=== PATIENT | female | born 1955 | race Caucasian/White ===

== ENCOUNTER 2016-09-29 12:24 | Inpatient (IN) ==
[2016-09-29 13:18] LABS: ALLEN TEST YES; BE 0.5 mmoll (-3.0-3.0); BLOOD TYPE ARTERIAL; DRAW SITE R RADIAL; METHB 1.3 % (0.0-1.5); MODALITY ROOM AIR; O2(CT) 8.7 mL/dL (15.0-23.0); PCO2(98.6) 41 mmHg (35-45); PO2(98.6) 69 mmHg (60-100); SAMPLE BLOOD; SAO2 97.5 % (95.0-100.0); THB 6.5 g/dL (11.5-17.4)
--- NOTE | 2016-09-29 14:22 | Diag Imaging Result Document ---
PROCEDURE NAME: CHEST-1 VIEW - 09/29/2016 CHEST SINGLE VIEW: COMPARISON: Compared to 07/15/2016. FINDINGS: The lungs are well expanded. Heart is not enlarged. Mild increased interstitial markings believed to be pulmonary edema. No consolidation. No pleural effusions identified. IMPRESSION: Mild pulmonary edema. Followup PA and lateral recommended.
[2016-09-29 14:34] LABS: MANUAL DIFF NEEDED? NO
[2016-09-29 14:42] LABS: BASO% 0.7 % (0.0-0.8); EOS# 0.18 X1000 (0.0-0.7); EOS% 2.6 % (0.0-10.0); HEMATOCRIT 22.9 % (37.0-47.0); HEMOGLOBIN 6.8 g/dL (12.0-16.0); LYMPH# 1.91 X1000 (1.2-3.4); LYMPH% 27.1 % (20.5-51.1); MCH 26.3 PG (27-31); MCHC 29.7 g/dL (33-37); MCV 88.4 FL (81-99); MONO# 0.78 X1000 (0.11-0.59); MONO% 11.1 % (1.7-9.3); MPV 10.8 FL (7.4-10.4); NEUT% 58.5 % (42.2-75.2); PLT 467 X1000 (130-400); RBC 2.59 XMIL (4.2-5.4)
[2016-09-29 15:09] LABS: INR 0.98; PROTIME 10.3 Seconds (9.2-11.7)
[2016-09-29 15:13] LABS: AGAP 15; ALBUMIN 3.6 g/dL (3.5-5.0); ALKALINE PHOSPHATASE 85 U/L (32-104); BUN 69 mg/dL (8-22); CALCIUM 8.5 mg/dL (8.8-10.2); CHLORIDE 102 mmol/L (98-107); CK PROFILE 93 U/L (24-173); COSMO 297; GOT 18 U/L (10-30); GPT 28 U/L (10-36); LIPASE 18 U/L (13-60); POTASSIUM 4.8 mmol/L (3.5-5.1); SODIUM 140 mmol/L (136-145); TCO2 23 mmol/L (25-35); TOTAL BILIRUBIN < 0.10 mg/dL (0.20-1.00); TOTAL PROTEIN 6.4 g/dL (6.3-8.3)
--- NOTE | 2016-09-29 16:21 | PROVIDER DOCUMENTATION ---
This chart was entered by Lincoln Thurston Scribe, acting as scribe for Jaquelin Obando MD. HPI-Neurological Disorder - General Stated Complaint: AMS Time Seen by Provider: 09/29/16 12:29 Source: patient Unable to obtain history due to:: altered Allergies/Adverse Reactions: Patient Allergies Allergy/AdvReac Type Severity Reaction Status Date / Time codeine [Codeine] Allergy Unknown RASH Verified 09/29/16 13:32 propranolol HCl * Allergy Unknown Unknown Verified 09/29/16 13:32 [From Inderal LA] sumatriptan [From Imitrex] Allergy Unknown Unknown Verified 09/29/16 13:32 sumatriptan succinate * Allergy Unknown Unknown Verified 09/29/16 13:32 [From Imitrex] trazodone HCl * Allergy Unknown Unknown Verified 09/29/16 13:32 [From Desyrel] duloxetine HCl * Allergy ANAPHYLAXIS Verified 09/29/16 13:32 [From Cymbalta] Penicillins Allergy RASH Verified 09/29/16 13:32 pregabalin [From Lyrica] Allergy ANAPHYLAXIS Verified 09/29/16 13:32 trazodone Allergy Unknown Verified 09/29/16 13:32 Home Medications: Home Medication List Medication Instructions Recorded Confirmed Last Taken Type ATORVAstatin [Lipitor] 40 mg PO QHS 12/06/14 09/29/16 09/28/16 21:00 History Levothyroxine [Synthroid] 50 mcg PO DAILY 12/06/14 09/29/16 09/28/16 21:00 History Esomeprazole [Nexium] 40 mg PO DAILY 09/07/15 09/29/16 09/28/16 21:00 History Insulin Aspart [Novolog Flexpen] 18 each SUBQ TID CC 09/07/15 09/29/16 09/29/16 12:00 History Insulin Detemir [Levemir] 10 units SUBQ HS 09/07/15 09/29/16 09/28/16 21:00 History Fenofibrate 160 mg PO DAILY 05/30/16 09/29/16 09/29/16 09:00 History Losartan [Cozaar] 25 mg PO DAILY 05/30/16 09/29/16 09/29/16 09:00 History Montelukast [Singulair] 10 mg PO QHS 05/30/16 09/29/16 09/28/16 21:00 History Aspirin EC 81 mg PO DAILY #60 tablet 06/08/16 09/29/16 09/29/16 09:00 Rx Insulin Detemir [Levemir] 40 unit SQ DAILY 07/12/16 09/29/16 09/29/16 09:00 History Carvedilol [Coreg] 25 mg PO BID #60 tablet 07/19/16 09/29/16 09/29/16 09:00 Rx Divalproex E.r. [Depakote ER] 250 mg PO DAILY 09/21/16 09/29/16 09/29/16 09:00 History Furosemide [Lasix] 40 mg PO DAILY 09/21/16 09/29/16 09/29/16 09:00 History Acetaminophen [Tylenol] 650 mg PO Q4H PRN 09/29/16 09/29/16 09/27/16 14:17 History Gabapentin [Gabapentin] 800 mg PO 4XDAY 09/29/16 09/29/16 09/29/16 09:00 History - History of Present Illness-Neuro Nature of Presenting Problem: patient is a 61 y/o F that presents to the ER that presents to the with AMS from [facility]. Unknown when AMS began, patient has history of same. 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 EMS report that this AMS is out of her normal. She had a fall last week which she had sutures placed. Severity: reports: moderate Onset/Duration: reports: unsure Timing: reports: still present, constant Context: reports: other (AMS) Character of Altered Mental Status: reports: confused, decreased responsiveness New weakness or altered sensation location:: reports: none Associated Symptoms: reports: confusion, other (AMS). denies: weakness Similar Symptoms Previously?: Yes Recently seen or treated by another doctor?: Yes (8 days ago for fall) Review of Systems - Adult - REVIEW OF SYSTEMS - ADULT ROS:: unobtainable per condition Constitutional: denies: fever, weight loss Eyes: reports: see HPI Ears, Nose, Mouth & Throat: reports: see HPI Cardiovascular: reports: see HPI Respiratory: denies: cough, shortness of breath Gastrointestinal: denies: diarrhea, vomiting Genitourinary: reports: see HPI Musculoskeletal: reports: see HPI Integumentary: reports: see HPI Neurological: reports: see HPI Psychiatric: reports: see HPI Endocrine: reports: see HPI Hematologic/Lymphatic: reports: see HPI Allergic/Immunologic: reports: see HPI All Other Systems: Reviewed and Negative Past History - Adult - PAST MEDICAL HISTORY-ADULT Review of Records: reports: Old Records Reviewed, Nursing Assessment Review, Medications Reviewed Cardiovascular: reports: HTN, hyperlipidemia Respiratory: reports: COPD Gastrointestinal: reports: GERD Obstetrical/Gynecological: reports: uterine/ovarian cancer (ovarian cancer) Musculoskeletal: reports: arthritis, chronic pain, fibromyalgia, other ( bilateral hip replacements) Neurological: reports: CVA, headaches/migraines, TIA, other (neuropathy) Psychiatric: reports: anxiety, depression Endocrine/Immune: reports: Diabetes, thyroid disorder (hypo) Other Conditions: reports: other (fibromyalgia) - PRIOR SURGERIES/PROCEDURES Surgical/Procedure History: reports: hysterectomy, joint replacement (bilateral hips), other (breast implants) - IMMUNIZATION STATUS Childhood Immunizations: NUTD Flu Vaccine: NUTD - FAMILY HISTORY Family History: reviewed, not pertinent - SOCIAL HISTORY Smoking: cigar, less than 1 pack/day Living Situation: care facility ([facility]) Physical Exam- Neurological - Physical Exam-Neuro Exam Limited by: pt condition Initial Vital Signs Reviewed: Yes General Appearance: mild distress, lethargic, slow to respond Eye Exam: bilateral eye: PERRL HENMT: moist mucous membranes, normal ENT inspection Neck: full range of motion, normal inspection Respiratory: lungs clear, normal breath sounds, no respiratory distress, no accessory muscle use Cardiovascular: regular rate, rhythm, no edema, no murmur Abdominal Exam: normal bowel sounds, soft, no organomegaly, no pulsatile mass, tenderness (right sided) Extremity: no calf tenderness, normal capillary refill, pelvis stable, pedal edema (2 plus pitting) polisher numeral Exam: normal hearing, normal speech, PERRL Integumentary: normal turgor, warm/dry, ecchymosis (periumbilical), other ( sutures noted to left cheek) Psych/Mental Status: other (lethargic, slow to respond). negative: anxious, tearful Progress - PLAN OF CARE/RESULTS Progress/Plan/Lab Results: Vital Signs - 8 hr 09/29/16 13:00 09/29/16 14:30 09/29/16 15:28 Pulse Rate 59 L 59 L 63 Respiratory Rate 19 15 23 Blood Pressure 110/67 102/44 110/54 O2 Sat by Pulse Oximetry 95 Laboratory Results - last 24 hr 09/29/16 09/29/16 09/29/16 12:20 12:20 12:20 WBC 7.05 RBC 2.59 L Hgb 6.8 L Hct 22.9 L MCV 88.4 MCH 26.3 L MCHC 29.7 L RDW Std Deviation 15.4 H Plt Count 467 H MPV 10.8 H Immature Gran % (Auto) 0.0 Neut % (Auto) 58.5 Lymph % (Auto) 27.1 [place] % (Auto) 11.1 H Eos % (Auto) 2.6 Baso % (Auto) 0.7 Immature Gran # (Auto) 0.00 Neut # (Auto) 4.13 Lymph # (Auto) 1.91 [place] # (Auto) 0.78 H Eos # (Auto) 0.18 Baso # (Auto) 0.05 PT INR PTT (Actin FS) Specimen Type Sample Site pH pCO2 pO2 HCO3 Base Excess Oxyhemoglobin ABG O2 Sat (Calculated) ABG O2 Saturation ABG Carboxyhemoglobin ABG Methemoglobin Norberto Test A-a O2 Difference Total Hemoglobin Lactate Blood Gas Modality FiO2 % Sodium 140 Potassium 4.8 Chloride 102 Carbon Dioxide 23 L Anion Gap 15 BUN 69 H Creatinine 1.9 H Estimated GFR/1.73 m2 27 BUN/Creatinine Ratio 36 Glucose 57 L Calculated Osmolality 297 Calcium 8.5 L Total Bilirubin < 0.10 L AST 18 ALT 28 Alkaline Phosphatase 85 Creatine Kinase 93 Troponin T Total Protein 6.4 Albumin 3.6 Globulin 2.8 Albumin/Globulin Ratio 1.3 Lipase 18 Plasma/Serum Ethyl Alc 09/29/16 09/29/16 09/29/16 12:20 12:20 13:10 WBC RBC Hgb Hct MCV MCH MCHC RDW Std Deviation Plt Count MPV Immature Gran % (Auto) Neut % (Auto) Lymph % (Auto) [place] % (Auto) Eos % (Auto) Baso % (Auto) Immature Gran # (Auto) Neut # (Auto) Lymph # (Auto) Churchill # (Auto) Eos # (Auto) Baso # (Auto) PT 10.3 INR 0.98 PTT (Actin FS) 21.0 L Specimen Type ARTERIAL Sample Site R RADIAL pH 7.40 pCO2 41 pO2 69 HCO3 25.3 Base Excess 0.5 Oxyhemoglobin 94.4 L ABG O2 Sat (Calculated) 8.7 L ABG O2 Saturation 97.5 ABG Carboxyhemoglobin 2.00 ABG Methemoglobin 1.3 Norberto Test YES A-a O2 Difference 29.0 Total Hemoglobin 6.5 L Lactate 0.80 Blood Gas Modality ROOM AIR FiO2 % 21.0 Sodium Potassium Chloride Carbon Dioxide Anion Gap BUN Creatinine Estimated GFR/1.73 m2 BUN/Creatinine Ratio Glucose Calculated Osmolality Calcium Total Bilirubin AST ALT Alkaline Phosphatase Creatine Kinase Troponin T < 0.010 Total Protein Albumin Globulin Albumin/Globulin Ratio Lipase Plasma/Serum Ethyl Alc Orders Category Date Time Status Cardiac Monitoring DIRECTED Care 09/29/16 12:55 Active Finger Stick Blood Sugar (ED) DIRECTED Care 09/29/16 12:55 Active Saline Loc NOW Care 09/29/16 12:55 Active CHEST-1 VIEW [RAD] Stat Exams 09/29/16 12:55 Completed HEAD W/O CONTRAST [CT] Stat Exams 09/29/16 12:56 Taken ABG [RESP] Routine Lab 09/29/16 13:10 Completed ALCOHOL BLOOD Stat Lab 09/29/16 12:20 Completed CBC WITH ELECTRONIC DIFF [HEME] Stat Lab 09/29/16 12:20 Completed CK PROFILE [SP CHEM] Stat Lab 09/29/16 12:20 Completed COMPREHENSIVE METABOLIC PANEL [CHEM] Stat Lab 09/29/16 12:20 Completed LIPASE [CHEM] Stat Lab 09/29/16 12:20 Completed PROTIME WITH INR [COAG] Stat Lab 09/29/16 12:20 Completed PTT [COAG] Stat Lab 09/29/16 12:20 Completed TROPONIN T Stat Lab 09/29/16 12:20 Completed TYPE & SCREEN [BBK] Stat Lab 09/29/16 16:10 Ordered UA NIMS W/REFLEX CULT [URINALYSIS] Stat Lab 09/29/16 12:29 Uncollected UDS [URINE DRUG SCREEN] Stat Lab 09/29/16 12:29 Uncollected Pulse Oximetry Stat Oth 09/29/16 12:55 Active EKG [EKG] Stat Ther 09/29/16 12:55 Ordered Hemocult negative Result Diagrams: 09/29/16 12:20 09/29/16 12:20 - EKG 1 Time of EKG reading by physician:: 13:51 EKG Read and Signed by:: Jaquelin Obando EKG Interpretation (*Must complete 3 of following elements*): Abnormal Rate: 57 Rhythm: Sinus Bradycardia [place]: normal QRS: normal [place] Interval: normal ST Wave: normal - XRAY 1 XRAY Study: Chest Impression: Abnormal XRAY Interpretation: mild pulmonary edema - CT/MRI 1 CT Study: Head Impression: Abnormal CT Results: no blood, multiple old infarcts - CONSULTS/PCP/HOSPITALIST Notification #1 *Consult/PCP/Hospitalist*: Time Discussed: 16:16 Consult Disposition: Will see in ED, Admit Departure - Departure Time of Disposition Decision: 16:18 DIAGNOSIS: Renal failure Anemia Qualifiers: Anemia type: unspecified type Qualified Code(s): D64.9 - Anemia, unspecified Altered mental status Qualifiers: Altered mental status type: unspecified Qualified Code(s): R41.82 - Altered mental status, unspecified Disposition: ADMITTED INPATIENT 09 Certified Medical Emergency: Emergent Condition: Stable Referrals and Follow-Ups: Ankit Lee MD [Primary Care Provider] - This chart was documented by the indicated scribe, (Lincoln Thurston Scribe) and accurately reflects the services I performed and decisions made by , Jaquelin Obando MD, as attested by the provider's signature.
[2016-09-29] MEDS ORDERED: D50W SYRINGE IV ONE (16:27)
[2016-09-29] MEDS ORDERED: LASIX IV ONE (16:36)
[2016-09-29 16:48] LABS: BILIRUBIN URINE NEGATIVE (NEGATIVE); BLOOD URINE NEGATIVE (NEGATIVE); COLOR YELLOW; GLUCOSE URINE NEGATIVE (NEGATIVE); LEUKOCYTES URINE NEGATIVE (NEGATIVE); NITRITE URINE NEGATIVE (NEGATIVE); PH URINE 5.5; PROTEIN URINE 30 mg/dL (NEGATIVE); SP GRAVITY URINE 1.017; TURBIDITY URINE CLEAR (CLEAR); URINE CULTURE NEEDED? NO; URINE MICRO REVIEW NEEDED? NO; URINE SOURCE CATH; UROBILINOGEN URINE NORMAL (NORMAL)
[2016-09-29] MEDS ORDERED: SODIUM CHLORIDE 0.9% INJ PRN (16:50)
[2016-09-29 16:51] LABS: UR EPITHELIAL CELLS <10 /HPF (<10); URINE BACTERIA NEGATIVE /HPF; URINE RBC <10 /HPF (<10); URINE WBC <10 /HPF (<10)
[2016-09-29 17:04] LABS: UR AMPHETAMINES QUAL NONE DETECTED (NONE DETECT); UR BARBITUATES QUAL NONE DETECTED (NONE DETECT); UR BENZODIAZEPIN QUAL NONE DETECTED (NONE DETECT); UR CANNABINOIDS QUAL NONE DETECTED (NONE DETECT); UR COCAINE QUAL NONE DETECTED (NONE DETECT); UR METHADONE QUAL NONE DETECTED (NONE DETECT); UR OPIATES QUAL NONE DETECTED (NONE DETECT); UR OXYCODONE QUAL NONE DETECTED (NONE DETECT); UR PCP QUAL NONE DETECTED (NONE DETECT)
[2016-09-29 17:10] LABS: RETIC% 3.04 % (0.8-2.1); RETIC-HE 19.2 PG (28.2-36.6)
[2016-09-29 17:35] LABS: IRON SATURATION 3 %; TIBC 503 ug/dL; TOTAL IRON 14 ug/dL (49-151); UNBOUND IRON 489 ug/dL (112-346)
[2016-09-29] MEDS: PROTONIX IV SCH (17:41)
[2016-09-29] MEDS: SODIUM CHLORIDE 0.9% INJ SCH (17:42)
[2016-09-29 17:49] LABS: UR CREAT RANDOM 83.7 mg/dL (11-20); UR PROT RANDOM 45.3 mg/dL
[2016-09-29 18:08] LABS: FREE T4 1.04 ng/dL (0.93-1.70)
[2016-09-29] MEDS ORDERED: NS 500 ML ONE (18:14)
[2016-09-29] MEDS ORDERED: DUONEB (A & A) ONE (19:06)
[2016-09-29] MEDS ORDERED: MUCOMYST 20% ONE (19:06)
[2016-09-29] MEDS: MUCOMYST 20% INH SCH (19:30)
[2016-09-29] MEDS: DUONEB (A & A) INH SCH ×2 (19:30→23:22)
[2016-09-29] MEDS: 1/2 NS 1,000 ML IV SCH (21:12)
[2016-09-29] MEDS: LEVAQUIN 500 MG in NS 100 ML IV SCH (21:12)
[2016-09-29] MEDS: D50W SYRINGE IV PRN (23:09)
[2016-09-29] MEDS: ATIVAN IV PRN (23:15)
[2016-09-30] MEDS: HALDOL IM PRN ×7 (01:00→22:17)
[2016-09-30] MEDS: DUONEB (A & A) INH SCH ×6 (03:23→22:41)
[2016-09-30 05:13] LABS: HEMATOCRIT 25.2 % (37.0-47.0); HEMOGLOBIN 7.8 g/dL (12.0-16.0); MCV 87.2 FL (81-99); MPV 10.6 FL (7.4-10.4); RBC 2.89 XMIL (4.2-5.4)
[2016-09-30] MEDS: PROTONIX IV SCH ×2 (05:18→17:00)
[2016-09-30] MEDS: SODIUM CHLORIDE 0.9% INJ SCH (05:18)
[2016-09-30 05:33] LABS: ALBUMIN 3.1 g/dL (3.5-5.0); CALCIUM 8.4 mg/dL (8.8-10.2); POTASSIUM 4.5 mmol/L (3.5-5.1)
--- NOTE | 2016-09-30 05:57 | EKG Report ---
Test Performed on : 09/30/2016 05:12:33 AM Test Reason : chest pain Blood Pressure : / mmHG Vent. Rate : 063 BPM Atrial Rate : 063 BPM P-R Int : 156 ms QRS Dur : 086 ms QT Int : 434 ms P-R-T Axes : 081 073 086 degrees QTc Int : 444 ms Normal sinus rhythm. Normal ECG When compared with ECG of 29-SEP-2016 13:51, (Unconfirmed) No significant change was found Confirmed by Yodit BEEBE, Evans Gu ([id number]) on 09/30/2016 6:40:42 PM
--- NOTE | 2016-09-30 06:04 | EKG Report ---
Test Performed on : 09/29/2016 1:51:50 PM Test Reason : AMS Blood Pressure : / mmHG Vent. Rate : 057 BPM Atrial Rate : 057 BPM P-R Int : 144 ms QRS Dur : 086 ms QT Int : 440 ms P-R-T Axes : 076 073 091 degrees QTc Int : 428 ms Sinus bradycardia. Otherwise normal ECG When compared with ECG of 12-JUL-2016 08:03, No significant change was found Unconfirmed Result
[2016-09-30] MEDS: SYNTHROID IV SCH (06:16)
[2016-09-30] MEDS: MUCOMYST 20% INH SCH ×2 (07:13→19:35)
--- NOTE | 2016-09-30 07:21 | Diag Imaging Result Document ---
PROCEDURE NAME: HEAD W/O CONTRAST - 09/29/2016 CT BRAIN WITHOUT CONTRAST. TECHNIQUE: Dose reduction protocol. COMPARISON: Compared to 07/28/2016. FINDINGS: No parenchymal hemorrhage. No epidural or subdural hematoma. No subarachnoid hemorrhage. Old left parietooccipital infarct. There are chronic microvascular ischemic changes. Old lacunes in the right basal ganglia. Old left cerebellar infarct. No mass identified on this noncontrasted exam. No hydrocephalus. No sinus opacification. IMPRESSION: 1. No hemorrhage. 2. Multiple old infarcts.
--- NOTE | 2016-09-30 07:46 | HISTORY AND PHYSICAL ---
CHIEF COMPLAINT: Confusion at the [facility]. HISTORY OF PRESENT ILLNESS: Ms. Kamara is a 61-year-old female with a history of multiple medical problems including diabetes mellitus-type 1, hypoglycemia, depression, frequent falls and hypothyroidism who was sent to the ER from [facility] after the patient was noted to be very confused and combative. Upon arrival to the ER, a head CT was done that was noted to be unremarkable. The patient was noted to have a blood sugar of 25 and was given D50. The patient was too confused to provide any history, and there was no family present at the bedside. The patient was seen in the ER on 09/21/2016, at which time, she was sent to the ER because she fell and hit her head while she was trying to get out of a chair. As a result of the fall, she did suffer a laceration to her left cheek which was sutured. At that time, the patient had a CT of the facial bones that was negative for fractures. Today, the patient was noted to have a hemoglobin of 6.8 with a hematocrit of 22.9 and her BUN and creatinine were elevated above her baseline. While in the ER, the patient was started on antibiotic therapy and bronchodilator therapy, a blood transfusion was started. PAST MEDICAL HISTORY: 1. Hypoglycemia. 2. Diabetes mellitus, type 1. 3. GERD. 4. Hypertension. 5. Ovarian cancer. 6. Dementia. 7. Depression. 8. Hypothyroidism. 9. History of CVA. 10. Dyslipidemia. 11. Carotid artery stenosis. 12. Left rib fractures. PAST SURGICAL HISTORY: 1. Hysterectomy. 2. Bilateral hip replacement. 3. Breast augmentation. FAMILY HISTORY: Noncontributory due to age. SOCIAL HISTORY: The patient is a resident at [facility]. The patient does have a 25- pack year history. ALLERGIES: 1. Codeine. 2. Imitrex. 3. Cymbalta. 4. Trazodone. 5. Inderal. HOME MEDICATIONS: 1. NovoLog before each meal. 2. Singulair 10 mg p.o. at bedtime. 3. Cozaar 25 mg p.o. daily. 4. Synthroid 50 mcg p.o. daily. 5. Levemir 40 units subcutaneous in the morning. 6. Levemir 10 units subcutaneous at bedtime. 7. Lasix 40 mg p.o. daily. 8. Fenofibrate 160 mg p.o. daily. 9. Nexium 40 mg p.o. daily. 10. Depakote ER 250 mg p.o. daily. 11. Coreg 25 mg p.o. twice a day. 12. Aspirin 81 mg p.o. daily. 13. Lipitor 40 mg p.o. at bedtime. 14. Gabapentin 800 mg p.o. 4 times a day. 15. Tylenol 650 mg p.o. every 4 hours p.r.n. for pain. REVIEW OF SYSTEMS: Unable to obtain due to the patient's altered mental status. PHYSICAL EXAMINATION: VITAL SIGNS: Temperature is 97.4 degrees, blood pressure 130/54, heart rate 64, respirations 18, O2 saturations 97% on 3 L nasal cannula. GENERAL: This is a chronically ill-appearing, elderly female, lying in bed, in no acute distress. HEAD: The patient does have a healing laceration to her left cheek. EYES: Conjunctivae clear, EOMI, PERRLA. NECK: Supple. No JVD. No lymphadenopathy. HEART: S1, S2 normal. Bradycardic. LUNGS: Coarse breath sounds bilaterally. Equal air entry bilaterally. ABDOMEN: Positive bowel sounds. Soft, nontender, nondistended. EXTREMITIES: No edema. No cyanosis. No calf tenderness. NEUROLOGIC: The patient is confused and very agitated. She is moving all 4 extremities. LABORATORY DATA: White blood cell count 7, hemoglobin 6.8, hematocrit 22, platelets 467,000. INR is 0.9, sodium 140, potassium 4.8, chloride 102, CO2 of 23. BUN 69, creatinine 1.9, glucose 67. Calcium 8.5, iron 14. TIBC 503. Percent saturation 3. Ferritin 11, AST 18, ALT 28. Alkaline phosphatase 85. ProBNP 787. Albumin 3.6. Lipase 18. Vitamin D level 5.0. Folate 17.3. TSH 1.8. Free T4 1.0. UA negative. Urine drug toxicology screen negative. Chest x-ray reveals mild pulmonary edema. ASSESSMENT AND PLAN: 1. Metabolic encephalopathy. The patient was noted to be severely hypoglycemic on admission with a blood sugar of 25. This may be the cause of the patient's lethargy and confusion. We will monitor the patient's blood sugars every 2 hours and treat accordingly. We will hold the patient's insulin therapy at this time. The head CT is unremarkable. We will monitor neuro checks closely. 2. Acute kidney injury on chronic kidney disease. We will start the patient on gentle IV fluid hydration and check a renal ultrasound as well as urine electrolytes. We will hold on nephrotoxic agents. 3. Hypoglycemia. Will monitor the patient's Accu-Cheks every 2 hours and hold insulin therapy at this time. 4. Severe iron deficiency anemia. The stool for occult blood was noted to be negative. We will consult GI for consideration of endoscopy. In the mean time, the patient will be transfused with 1 unit of packed red blood cells. 5. Frequent falls. The patient will be placed on fall precautions. 6. Hypothyroidism. Continue on Synthroid. 7. Acute bronchitis. We will start the patient on Levaquin, plus bronchodilator therapy and supplemental oxygen. 8. Uncontrolled insulin-dependent diabetes mellitus. The patient was hypoglycemic on admission. Her insulin therapy is being held at this time. 9. History of cerebrovascular accident, aware. 10. Gastroesophageal reflux disease. The patient will be started on IV Protonix. 11. Deep vein thrombosis prophylaxis. We will start the patient on sequential compression devices. We will hold anticoagulation due to the patient's severe iron deficiency anemia. cc: Merlyn Veras MD
--- NOTE | 2016-09-30 08:00 | Diag Imaging Result Document ---
PROCEDURE NAME: CHEST-PORTABLE - 09/30/2016 SINGLE FRONTAL RADIOGRAPH OF THE CHEST: COMPARISON: 09/29/2016. FINDINGS: Mildly prominent interstitial markings are stable to marginally improved. No new consolidations are identified. Cardiac silhouette is stable. IMPRESSION: Stable to marginal improvement of the mildly prominent interstitial markings.
--- NOTE | 2016-09-30 09:30 | Diag Imaging Result Document ---
PROCEDURE NAME: THORAX/ABDOMEN/PELVIS W/O CONT - 09/29/2016 CT CHEST: A CT dose reduction protocol was used. COMPARISON: Chest x-ray 09/29/2016. FINDINGS: There is a trace right pleural effusion. There is bibasilar atelectasis. There is cardiomegaly and pulmonary vascular congestion. There is probably some interstitial pulmonary edema. There are several old bilateral rib fractures. There are anterior left 2nd-4th rib fractures, and posterior left 7th and 8th rib fractures. There is an anterior right 6th rib fracture. There are some prominent mediastinal lymph nodes but no focal adenopathy. IMPRESSION: 1. Cardiomegaly. Pulmonary vascular congestion. Trace interstitial pulmonary edema. Trace right pleural effusion. 2. Numerous bilateral rib fractures. CT ABDOMEN AND PELVIS: A CT dose reduction protocol was used. COMPARISON: 07/23/2014. FINDINGS: There are some gallstones in the gallbladder. No obvious gallbladder inflammation. There is trace pelvic free fluid. No radiodense renal stones. No hydronephrosis or hydroureter. There is a stable nodule inferior to the cecum measuring 19 x 11 mm. This is indeterminate. An catheter in the urinary bladder. There is flank edema. There is a left hip prosthesis and a right femoral neck stabilization latasha. There are chronic bilateral L5 pars defects. IMPRESSION: Cholelithiasis. Trace ascites. Flank edema. [facility]
--- NOTE | 2016-09-30 09:33 | Diag Imaging Result Document ---
PROCEDURE NAME: US RENAL 2 (RETROPER) COMPLETE - 09/29/2016 RENAL ULTRASOUND: COMPARISON: None available. FINDINGS: The kidneys are grossly normal in echotexture. There is no discrete renal mass or hydronephrosis. The right kidney measures 11.9 cm and left kidney measures 10.6 cm in the greatest longitudinal axes. The right renal cortex measures up to 1.1 cm and the left renal cortex measures up to 0.9 cm in thickness. There is a An catheter in the urinary bladder and the bladder is completely nondistended. IMPRESSION: Essentially unremarkable renal ultrasound.
[2016-09-30] MEDS: 1/2 NS 1,000 ML IV SCH (10:54)
[2016-09-30] MEDS: ATIVAN IV PRN ×3 (11:39→21:09)
[2016-09-30] MEDS ORDERED: LASIX IV ONE (13:14)
--- NOTE | 2016-09-30 15:04 | PROGRESS NOTE ---
DATE: 09/30/2016 SUBJECTIVE: The patient remains confused this morning. She does not follow commands. OBJECTIVE: Vital Signs: Temperature 96.8 degrees, blood pressure 150/72, heart rate 73, respirations 17, O2 saturations 93% on 2 L nasal cannula. General: This is a chronically ill- appearing, elderly female, lying in bed in no acute distress. Head: Normocephalic, atraumatic. Heart: S1, S2. Normal. Regular rate and rhythm. Lungs: Coarse breath sounds bilaterally. Abdomen: Positive bowel sounds. Soft, nontender, nondistended. Extremities: No edema. No cyanosis. Neurologic: The patient is confused and does not follow commands. LABORATORY DATA: White blood cell count 6.2, hemoglobin 7.8, hematocrit 25, platelets 415,000. Sodium 142, potassium 4.5, chloride 103, CO2 of 25, BUN 67, creatinine 1.7. Glucose 104. Albumin 3.1. ASSESSMENT AND PLAN: 1. Metabolic encephalopathy. We will continue to monitor for improvement. The head CT was negative. 2. Acute kidney injury on chronic kidney disease. Improved. We will to continue to monitor for improvement. 3. Iron-deficiency anemia. Gastroenterology has been consulted for consideration of endoscopy to rule out a gastrointestinal source of the patient's anemia. 4. Insulin-dependent diabetes mellitus. The patient's blood sugar is improved. We will continue to monitor off of insulin. 5. Hypothyroidism. Continue on Synthroid. 6. Pulmonary edema. Continue on IV Lasix. 7. Acute bronchitis. Continue on bronchodilator therapy and Levaquin. 8. Deep vein thrombosis prophylaxis. Continue with SCDs. cc: Merlyn Veras MD [facility]ITAL[facility]quis
[2016-09-30] MEDS ORDERED: STERILE WATER INJ. INJ PRN (16:53)
[2016-09-30] MEDS: GEODON IM PRN ×2 (17:00→23:42)
[2016-09-30] MEDS: CARDENE 20 MG/NS 20 MG/200 ML PIGGYBACK IV SCH ×3 (18:24→23:48)
[2016-09-30 18:29] LABS: ALLEN TEST NO; BE 2.2 mmoll (-3.0-3.0); BLOOD TYPE ARTERIAL; DRAW SITE R BRACHIAL; METHB 1.7 % (0.0-1.5); O2(CT) 13.1 mL/dL (15.0-23.0); PCO2(98.6) 50 mmHg (35-45); PO2(98.6) 269 mmHg (60-100); SAMPLE BLOOD; SAO2 99.3 % (95.0-100.0); THB 9.1 g/dL (11.5-17.4); pH(98.6) 7.36 (7.35-7.45)
[2016-09-30 18:30] LABS: MODALITY NRB
[2016-10-01] MEDS: CARDENE 20 MG/NS 20 MG/200 ML PIGGYBACK IV SCH (02:23)
[2016-10-01] MEDS: HALDOL IM PRN ×4 (02:49→20:41)
[2016-10-01] MEDS: DUONEB (A & A) INH SCH ×6 (03:52→22:48)
[2016-10-01] MEDS: SODIUM CHLORIDE 0.9% INJ SCH ×3 (04:29→17:31)
[2016-10-01] MEDS: PROTONIX IV SCH ×2 (04:29→17:30)
[2016-10-01 04:59] LABS: ALBUMIN 3.4 g/dL (3.5-5.0); CALCIUM 8.7 mg/dL (8.8-10.2); HEMOGLOBIN 8.1 g/dL (12.0-16.0); MCHC 31.2 g/dL (33-37); MPV 10.8 FL (7.4-10.4); POTASSIUM 5.7 mmol/L (3.5-5.1); RBC 2.89 XMIL (4.2-5.4)
--- NOTE | 2016-10-01 06:12 | CONSULTATION ---
DATE OF CONSULTATION: 09/30/2016 REFERRING PHYSICIAN: Merlyn Veras M.D. PRIMARY CARE PROVIDER: Ankit Lee M.D. INDICATION FOR CONSULTATION: Unexplained anemia. HISTORY OF PRESENT ILLNESS: The patient is a 61-year-old white female with multiple medical concerns including diabetes mellitus type 1, recurrent hypoglycemia, falls, depression, and hypothyroidism, who was brought to the emergency room with altered mental status. In the emergency room, head CT was performed and was unremarkable. She was noted to have a blood sugar of 25 and received D50. She has remained confused throughout this hospital course. There has been no family at bedside and we have been unable to reach family by phone. The patient was noted to have an unexplained hemoglobin of 6.8 with a hematocrit of 22.9. There has been no obvious signs of gastrointestinal bleeding. However, because of the unexplained anemia , we are asked to participate in her care. It should be noted that the patient is currently experiencing mild to moderate respiratory distress. She is a do not resuscitate Level 1. PAST MEDICAL HISTORY: 1. Hypoglycemia. 2. Diabetes 1. 3. Gastroesophageal reflux disease. 4. Hypertension. 5. Ovarian cancer. 6. Dementia. 7. Depression. 8. Hypothyroidism. 9. Cerebrovascular accident. 10. Dyslipidemia. 11. Carotid artery stenosis. 12. Bilateral rib fractures. 13. Recent fall in the emergency room on 09/21/2016 requiring sutures to repair a laceration to her left cheek. PAST SURGICAL HISTORY: 1. Hysterectomy. 2. Bilateral hip replacement. 3. Breast augmentation. FAMILY HISTORY: Unobtainable. According to the chart, there is no history of colon cancer. SOCIAL HISTORY: The patient is a resident at [facility]. She does have a 25 pack year smoking history. There is no history of alcohol or illicit drug use according to the medical record. REVIEW OF SYSTEMS: Unobtainable. The patient is lying in bed moaning. She does track to her name, but otherwise is unresponsive. Vital Signs: On exam her blood pressure is 165/59, pulse of 86, respiration 24, temperature of 99.2 degrees. She is on 50% Ventimask with oxygen saturation of 97%. HEENT: Negative for jaundice. Her conjunctivae are pale. Oropharyngeal mucosal membranes are slightly dry due to mouth breathing. Pulmonary Examination: She has inspiratory and expiratory wheezes with decreased excursion. Cardiovascular Examination: Reveals a regular rate and rhythm with no gallops or rubs. Abdominal Exam: Reveals normoactive bowel sounds. The abdomen is soft, nontender, with deep palpation. Extremities: Bilaterally are negative for cyanosis, clubbing, or edema. Neurologic Examination: She occasionally tracks with her name, but otherwise has no verbal responsiveness. She is awake and responds to noxious stimuli. OBJECTIVE DATA: Reveals a hemoglobin of 6.8, with hematocrit of 22.9 on admission. Her PT was 10.3 with an INR 0.98, and a PTT of 21.0. On 09/30/2016, after transfusion, her hemoglobin is 7.8 with hematocrit of 25.2 and a white count of 6.25. She has 415,000 platelets. Sodium is 142, potassium 4.5, chloride 103, CO2 of 25, BUN 67, creatinine 1.7, with a glucose of 64. Calcium is 8.4, phosphorus 5.8. Her CRP of 3.76. IMPRESSION: 1. Unexplained anemia. 2. Pulmonary edema. 3. Chronic kidney disease. 4. Altered mental status. RECOMMENDATION: 1. The CT scan of the abdomen and pelvis was performed on 09/29/2016. There were gallstones with some trace ascites and flank edema. There were no acute gastrointestinal process these. Therefore, I recommend supportive care. 2. Continue Protonix 40 mg IV q.12 hours. 3. Please obtain a stool for Hemoccult testing. So far, her stools have been negative for blood. There has been no active source of bleeding. 4. I will consult Dr. Mitchell for assistance with the pulmonary status, and she is too unstable to undergo any endoscopic evaluation. 5. We will need to discuss with the family the pros and cons, as well as the risks and benefits of endoscopic evaluation. 6. Continue Protonix 40 mg IV q.12 hours, as you are doing. 7. Additional recommendations to follow based on her clinical course and her pulmonary status. cc: MD Ankit Mathew MD Katherine Takundwa, MD MTDD
[2016-10-01] MEDS: SYNTHROID IV SCH (06:32)
[2016-10-01] MEDS ORDERED: SODIUM BICARBONATE 8.4% IV ONE (06:41)
[2016-10-01] MEDS ORDERED: ALBUTEROL 0.5% INH CONC FOR HYPERKALEMIA INH ONE (06:42)
[2016-10-01] MEDS ORDERED: D50W SYRINGE IV ONE (06:43)
[2016-10-01] MEDS ORDERED: HUMULIN R IV ONE (06:44)
[2016-10-01] MEDS ORDERED: HUMULIN R SUBQ SCH (07:00)
[2016-10-01] MEDS: MUCOMYST 20% INH SCH ×2 (07:24→19:22)
[2016-10-01] MEDS ORDERED: CALCIUM GLUCONATE 1 GM in NS 50 ML IV ONE (07:30)
[2016-10-01 07:32] LABS: ALLEN TEST YES; BE -11.5 mmoll (-3.0-3.0); BLOOD TYPE ARTERIAL; DRAW SITE R RADIAL; METHB 1.7 % (0.0-1.5); O2(CT) 10.9 mL/dL (15.0-23.0); PCO2(98.6) 30 mmHg (35-45); PO2(98.6) 110 mmHg (60-100); SAMPLE BLOOD; SAO2 98.6 % (95.0-100.0); THB 7.9 g/dL (11.5-17.4); pH(98.6) 7.28 (7.35-7.45)
[2016-10-01 07:34] LABS: MODALITY VENTIMASK
[2016-10-01] MEDS ORDERED: NS 250 ML ONE (07:51)
[2016-10-01] MEDS: NS 1,000 ML IV SCH ×2 (07:55→17:30)
--- NOTE | 2016-10-01 08:14 | Diag Imaging Result Document ---
PROCEDURE NAME: CHEST-PORTABLE - 09/30/2016 PORTABLE CHEST: COMPARISON: 09/30/2016. FINDINGS: The lungs are well expanded. There are increased interstitial markings throughout the lungs. The heart is borderline mildly prominent. No pleural effusion is identified. No consolidation. IMPRESSION: Increased interstitial markings believed to be pulmonary edema with no interval improvement.
--- NOTE | 2016-10-01 08:27 | Diag Imaging Result Document ---
PROCEDURE NAME: CHEST-PORTABLE - 10/01/2016 SINGLE FRONTAL RADIOGRAPH OF THE CHEST: COMPARISON: 09/30/2016. FINDINGS: The increased interstitial markings may have improved marginally during the interval. There is suggestion of mild pulmonary venous congestion. No new consolidation is identified. Cardiac silhouette is stable. IMPRESSION: Suggestion of marginal improvement.
[2016-10-01] MEDS: MERREM 500 MG in NS 50 ML IV SCH ×2 (08:50→19:34)
[2016-10-01] MEDS ORDERED: LASIX IV SCH (09:00)
[2016-10-01 09:34] LABS: URINE SOURCE CATH
[2016-10-01 09:43] LABS: BILIRUBIN URINE NEGATIVE (NEGATIVE); BLOOD URINE MODERATE (NEGATIVE); COLOR YELLOW; GLUCOSE URINE 100 mg/dL (NEGATIVE); LEUKOCYTES URINE LARGE (NEGATIVE); NITRITE URINE NEGATIVE (NEGATIVE); PROTEIN URINE 50 mg/dL (NEGATIVE); SP GRAVITY URINE 1.016; TURBIDITY URINE TURBID (CLEAR); UROBILINOGEN URINE NORMAL (NORMAL)
[2016-10-01 09:45] LABS: URINE MICRO REVIEW NEEDED? YES
[2016-10-01 09:56] LABS: UR EPITHELIAL CELLS <10 /HPF (<10); URINE BACTERIA NEGATIVE /HPF; URINE RBC TNTC /HPF (<10); URINE WBC TNTC /HPF (<10)
[2016-10-01 09:58] LABS: URINE CASTS GRANULAR PRESENT
[2016-10-01] MEDS: HUMULIN R SUBQ SCH ×6 (10:37→20:38)
[2016-10-01 11:56] LABS: UR CREAT RANDOM 128.6 mg/dL (11-20)
--- NOTE | 2016-10-01 13:02 | PROGRESS NOTE ---
DATE: 10/01/2016 SUBJECTIVE: The patient is on a Ventimask at this time. She is still confused and has periods of agitation. OBJECTIVE: Vital Signs: Temperature 98 degrees, blood pressure 118/59, heart rate 69, respirations 18, O2 saturation is 100% on 40% Ventimask. General: This is a chronically ill- appearing elderly female lying in bed in no acute distress. Head: Normocephalic, atraumatic. Heart: S1, S2. Normal. Regular rate and rhythm. Lungs: Coarse breath sounds bilaterally. No wheezing. No rales. Abdomen: Positive bowel sounds. Soft, nontender, nondistended. Extremities: No edema. No cyanosis. No calf tenderness. Neurologic: The patient does not follow commands but she is able to move all 4 extremities. LABS: White blood cell count 11, hemoglobin 8.1, hematocrit 26, platelets 423, 000. Sodium 139, potassium 5.7, chloride 96, CO2 14, BUN 71, creatinine 2.2, glucose 262. ASSESSMENT AND PLAN 1.Acute hypoxemic respiratory failure. Will continue with oxygen, bronchodilator therapy and IV antibiotics. Pulmonary consult. 2.Metabolic encephalopathy vs delirium. Unchanged. Will consult the neurologist for further recommendations. 3. Acute kidney injury on chronic kidney disease. Will restart IVF. Adequate urine output so far. Will monitor for improvement. 4. Mild hyperkalemia. Will treat and repeat the potassium level this afternoon. 5. Acute bronchitis. Continue on IV antibiotics and bronchodilator therapy. 6. Uncontrolled DM type 1. Will add levemir. Continue on sliding scale insulin. 7. Hypothyroidism. Continue on synthroid. 8. Hypertension. Improved. Continue to monitor. 9. Dementia. Aware 10.Iron deficiency anemia. H/H is stable. Will need endoscopy once stable. GI is following. 11.DVT prophylaxis. SCDs The plan of care was discussed with the patient's cousin and power of liner assembler. The patient is a DNR level 1. cc: Merlyn Veras MD MTDD
[2016-10-01] MEDS ORDERED: LEVEMIR SUBQ ONE (13:15)
--- NOTE | 2016-10-01 14:55 | CONSULTATION ---
DATE OF CONSULTATION: 10/01/2016 Ms. Kamara is 61 years old and she is back in the hospital with global encephalopathy again. This time, she apparently had a recorded blood sugar of 25. She was reported to be confused and combative. In the hospital, blood sugars have quickly come up over 300. Lab work shows anemia. Urine drug screen was all negative. Noncontrast CT of the head shows the old left cerebellar, left parietal occipital, and right basal ganglia infarctions, but nothing new. I have seen Ms. Kamara on several occasions in the past with global encephalopathy, usually associated with extreme blood sugar elevations. She has generally recovered each episode with management of blood sugar. I saw her in 2013 with minimal left hemiparesis attributed to the right basal ganglia lacunar infarction, which was acute at that time. PHYSICAL EXAMINATION: On exam now, she is supine, restrained at the wrists, breathing spontaneously. She initially did not respond to me appropriately, but with persistent stimulation. She answered some questions appropriately and followed simple commands including holding up 2 fingers. She has full lateral eye movement. Pupils are round and react briskly to bright light. Left pupil is tiny bit smaller than the right. Facial motility is diminished bilaterally, but symmetric. Tongue is midline. Tone is equal in the limbs. Plantar response is silent bilaterally. Reflexes are 1+ at the wrists and absent at the ankles. IMPRESSION: Global encephalopathy, abnormal blood sugars as most likely explanation. I do not see anything in her home medication list which likely would be associated with encephalopathy. Her urine drug screen was all negative. I do not have any urgent suggestion. If she does not recover as anticipated, we might consider repeat imaging and electroencephalogram later. Thanks for asking me to see Ms. Kamara again. cc: MD SLY Tucker III
--- NOTE | 2016-10-01 15:08 | CONSULTATION ---
DATE OF CONSULTATION: 10/01/2016 REQUESTING PHYSICIAN: Alisha Mcneil MD. PRIMARY CARE PHYSICIAN: Merlyn Veras MD. REASON FOR CONSULTATION: Shortness of breath, pulmonary edema. HISTORY OF PRESENT ILLNESS: Ms. Kamara is a 61-year-old white female with long history of poorly controlled diabetes mellitus, history of CVA with stroke, history of recurrent admission to the hospital with encephalopathy who was brought to the emergency room with confusion. The patient was hypoglycemic upon arrival. She has received glucose for this process. Her mental status remains altered and she currently is requiring 40% oxygen to maintain oxygen saturation. PAST MEDICAL HISTORY: 1. COPD. It is not clear if she continues to smoke. 2. Long history of recurrent encephalopathy associated with diabetes mellitus. 3. Diabetes mellitus. 4. Hypertension. 5. Gastroesophageal reflux disease. 6. Ovarian cancer is noted as a past medical history. Patient's chart was reviewed. She has multiple admissions to the hospital with the diagnosis of hysterectomy for endometriosis and then and 2014 she was said to have had history of ovarian cancer. This cannot be verified. 7. Dementia. 8. Depression. 9. Hypothyroidism. 10. History of CVA. 11. History of dyslipidemia. 12. Remote history of rib fractures. 13. Carotid artery stenosis. 14. Status post hip replacement. SOCIAL HISTORY: Prior tobacco use. It is not known if she continues to smoke. She is a resident of [facility]. PHYSICAL EXAMINATION: General: Reveals a chronically ill-appearing, white female, who appears older than her stated age. Vital Signs: Blood pressure 118/89, heart rate 69, respiratory rate 18, oxygen saturation 100% on 40% face mask. HEENT: Pupils are equal and reactive. Oropharynx is clear. Neck: Supple. Chest: Reveals scattered rhonchi bilaterally. Cardiac Exam: Increased rate, regular rhythm. Abdomen: Soft and without hepatosplenomegaly. Extremities: Without edema. LABORATORIES: Chest x-ray reveals mild pulmonary edema. Microbiology cultures are pending. Urinalysis reveals too numerous to count white blood cells. Arterial blood gas reveals pH 7.2, pCO2 of 30, PO2 of 110. IMPRESSION: A 61-year-old with poorly controlled diabetes mellitus who presents with hypoglycemia, altered mental status, acute hypoxemic respiratory failure, possible urinary tract infection with radiographic findings. Cannot rule out institution acquired pneumonia. RECOMMENDATION: 1. Continue oxygen as needed to maintain saturation greater than 90%. 2. Agree with broad-spectrum antibiotics to cover urinary tract infection and possible institution acquired pneumonia. 3. Glucose control. 4. Please review chart and see if the previous diagnosis of ovarian cancer can be confirmed. If not, please note this on her discharge summary so that it does not continue to be placed in the chart on future admissions. cc: Hilario Mitchell MD
[2016-10-01 16:16] LABS: ALBUMIN 3.4 g/dL (3.5-5.0); CALCIUM 8.8 mg/dL (8.8-10.2); POTASSIUM 5.3 mmol/L (3.5-5.1)
[2016-10-01] MEDS: LEVAQUIN 500 MG in NS 100 ML IV SCH (17:30)
[2016-10-01] MEDS ORDERED: INSULIN PEN NEEDLES ONE (20:35)
[2016-10-01] MEDS ORDERED: LEVEMIR SUBQ SCH (21:00)
[2016-10-02] MEDS: D50W SYRINGE IV PRN ×2 (00:45→04:51)
[2016-10-02] MEDS: HUMULIN R SUBQ SCH ×6 (01:14→20:43)
[2016-10-02] MEDS: HALDOL IM PRN ×3 (01:56→19:35)
[2016-10-02] MEDS: DUONEB (A & A) INH SCH ×6 (03:10→23:15)
[2016-10-02] MEDS: NS 1,000 ML IV SCH (03:12)
[2016-10-02] MEDS: ATIVAN IV PRN ×4 (03:36→21:24)
[2016-10-02 04:30] LABS: ALLEN TEST YES; BE 4.3 mmoll (-3.0-3.0); BLOOD TYPE ARTERIAL; DRAW SITE R RADIAL; METHB 1.1 % (0.0-1.5); PCO2(98.6) 44 mmHg (35-45); PO2(98.6) 94 mmHg (60-100); SAMPLE BLOOD; SAO2 99.1 % (95.0-100.0); THB 10.2 g/dL (11.5-17.4); pH(98.6) 7.43 (7.35-7.45)
[2016-10-02 04:38] LABS: MODALITY VENTIMASK
[2016-10-02] MEDS: PROTONIX IV SCH ×2 (04:53→16:58)
[2016-10-02] MEDS: SODIUM CHLORIDE 0.9% INJ SCH ×2 (04:53→16:58)
[2016-10-02] MEDS ORDERED: D10W 1,000 ML IV SCH (05:39)
[2016-10-02 05:57] LABS: HEMATOCRIT 22.2 % (37.0-47.0); HEMOGLOBIN 6.8 g/dL (12.0-16.0); MCH 27.2 PG (27-31); MCHC 30.6 g/dL (33-37); MCV 88.8 FL (81-99); MPV 10.6 FL (7.4-10.4); RBC 2.5 XMIL (4.2-5.4)
[2016-10-02] MEDS: SYNTHROID IV SCH (06:01)
[2016-10-02 06:14] LABS: CALCIUM 7.6 mg/dL (8.8-10.2); POTASSIUM 3.8 mmol/L (3.5-5.1)
[2016-10-02] MEDS ORDERED: CALCIUM GLUCONATE 1 GM in NS 50 ML IV ONE (06:28)
[2016-10-02] MEDS: D5W 1,000 ML IV SCH ×2 (06:30→19:35)
[2016-10-02] MEDS: MUCOMYST 20% INH SCH ×2 (07:38→19:01)
[2016-10-02] MEDS ORDERED: NS 250 ML ONE (07:47)
[2016-10-02] MEDS: MERREM 500 MG in NS 50 ML IV SCH ×2 (08:00→19:40)
--- NOTE | 2016-10-02 08:42 | Diag Imaging Result Document ---
PROCEDURE NAME: CHEST-PORTABLE - 10/02/2016 PORTABLE CHEST: COMPARISON: 10/01/2016. FINDINGS: The lungs are well expanded. Interval placement of a right sided PICC line. The tip overlies the right atrium. Pulmonary edema remains. The heart remains mildly enlarged. No pleural effusions identified. No consolidation. IMPRESSION: No interval improvement. The pulmonary edema may be slightly more pronounced than on the prior exam.
[2016-10-02] MEDS ORDERED: VANCOMYCIN 1 GM/NS 1 GM/250 ML IVPB IV ONE (10:33)
[2016-10-02] MEDS: LASIX IV SCH ×2 (10:55→22:55)
--- NOTE | 2016-10-02 13:21 | PROGRESS NOTE ---
DATE: 10/02/2016 SUBJECTIVE: The patient remains on a Ventimask in the ICU. She is lethargic this morning. Her blood sugar was noted to be 40 this morning. She did receive Levemir last night. The patient remains in 4-point restraints due to agitation. OBJECTIVE: Vital Signs: Temperature 96.8 degrees, blood pressure 160/71, heart rate 68, respirations 16, O2 saturations 97% on a Ventimask. General: This is a chronically ill- appearing, elderly female, lying in bed, in no acute distress. Head: Normocephalic atraumatic. Heart: S1, S2. Normal. Regular rate and rhythm. Lungs: Coarse breath sounds bilaterally with crackles. Abdomen: Positive bowel sounds. Soft, nontender, nondistended. Extremities: No edema. No cyanosis. Neurologic: The patient is lethargic and is currently in 4-point restraints. LABS: White blood cell count 6.2, hemoglobin 6.8, hematocrit 22, platelets 366,000. Sodium 150, potassium 3.8, chloride 113, CO2 26, BUN 65, creatinine 1.6, glucose 40. Chest x-ray shows pulmonary edema. ASSESSMENT AND PLAN: 1. Acute hypoxemic respiratory failure secondary to pulmonary edema. The patient has been started on Lasix by the large animal husbandry technician. Continue with supplemental oxygen and bronchodilator therapy. 2. Hypoglycemia. We will hold all long-acting insulin until the patient is able to eat. We will cover the patient with sliding scale insulin once her blood sugar recovers. For now she is on D5W. 3. Hypernatremia. The patient has been started on D5W. We will monitor the sodium closely. 4. Acute kidney injury on chronic kidney disease. Improved. 5. Iron deficiency anemia. The patient's hemoglobin and hematocrit dropped overnight. The patient does not have any active signs of bleeding. We will transfuse the patient with 1 unit of packed red blood cells. 6. Global encephalopathy. Unchanged. We will continue to monitor for improvement. 7. Acute bronchitis. Continue on broad-spectrum antibiotics plus bronchodilator therapy. 8. Hypothyroidism. Continue on Synthroid. 9. Hypertension. The patient's blood pressure has been running high. If it does not improve we will restart the Cardene drip. 10. Deep vein thrombosis prophylaxis. Continue with SCDs. 11. Gastrointestinal prophylaxis. We will continue on Protonix. cc: Merlyn Veras MD
[2016-10-02 15:24] LABS: ALBUMIN 3.2 g/dL (3.5-5.0); POTASSIUM 4.3 mmol/L (3.5-5.1)
[2016-10-02] MEDS: CARDENE 20 MG/NS 20 MG/200 ML PIGGYBACK IV SCH (22:15)
[2016-10-03] MEDS: HUMULIN R SUBQ SCH ×6 (00:55→20:06)
[2016-10-03] MEDS: CARDENE 20 MG/NS 20 MG/200 ML PIGGYBACK IV SCH ×4 (02:38→17:07)
[2016-10-03] MEDS: DUONEB (A & A) INH SCH ×6 (03:00→23:16)
[2016-10-03] MEDS: ATIVAN IV PRN ×4 (03:30→22:11)
[2016-10-03 04:56] LABS: ALLEN TEST YES; BLOOD TYPE ARTERIAL; DRAW SITE R RADIAL; METHB 1.4 % (0.0-1.5); O2(CT) 12.7 mL/dL (15.0-23.0); PO2(98.6) 90 mmHg (60-100); SAMPLE BLOOD; SAO2 97.8 % (95.0-100.0); THB 9.3 g/dL (11.5-17.4); pH(98.6) 7.41 (7.35-7.45)
[2016-10-03 04:57] LABS: MODALITY PRB; PCO2(98.6) 55 mmHg (35-45)
[2016-10-03] MEDS: PROTONIX IV SCH ×2 (05:25→16:16)
[2016-10-03] MEDS: SODIUM CHLORIDE 0.9% INJ SCH ×2 (05:25→16:16)
[2016-10-03 05:29] LABS: MANUAL DIFF NEEDED? NO
[2016-10-03 06:10] LABS: ALBUMIN 3.4 g/dL (3.5-5.0); CALCIUM 8.9 mg/dL (8.8-10.2); POTASSIUM 4.3 mmol/L (3.5-5.1)
[2016-10-03] MEDS: SYNTHROID IV SCH (07:09)
--- NOTE | 2016-10-03 07:13 | Diag Imaging Result Document ---
PROCEDURE NAME: CHEST-PORTABLE - 10/03/2016 PORTABLE CHEST: COMPARISON: 10/02/2016. FINDINGS: The lungs are well expanded. No change in the right-sided PICC line. There are increased interstitial markings diffusely in both lungs. These are slightly more prominent than on the prior exam. No pleural effusions identified. Heart is borderline mildly prominent. IMPRESSION: Overall mild worsening.
[2016-10-03 07:20] LABS: BASO% 0.4 % (0.0-0.8); EOS# 0.07 X1000 (0.0-0.7); EOS% 0.7 % (0.0-10.0); HEMATOCRIT 30.9 % (37.0-47.0); HEMOGLOBIN 9.6 g/dL (12.0-16.0); IMM GRAN# 0.02 X1000 (0.0-0.04); IMM GRAN% 0.2 % (0.0-0.5); LYMPH# 1.06 X1000 (1.2-3.4); MCH 27.7 PG (27-31); MCHC 31.1 g/dL (33-37); MCV 89.3 FL (81-99); MONO# 0.91 X1000 (0.11-0.59); MONO% 8.6 % (1.7-9.3); MPV 10.6 FL (7.4-10.4); NEUT% 80.1 % (42.2-75.2); PLT 412 X1000 (130-400); RBC 3.46 XMIL (4.2-5.4)
[2016-10-03] MEDS: MUCOMYST 20% INH SCH ×2 (07:24→19:08)
[2016-10-03] MEDS: MERREM 500 MG in NS 50 ML IV SCH ×2 (07:38→19:55)
[2016-10-03] MEDS: LASIX IV SCH ×2 (11:31→22:11)
--- NOTE | 2016-10-03 13:42 | PROGRESS NOTE ---
DATE: 10/03/2016 SUBJECTIVE: The patient is resting comfortably in bed. She is currently in 4 point restraints. She remains confused. She is currently on a Cardene drip. OBJECTIVE: Vital Signs: Temperature 98.1 degrees, blood pressure 187/71, heart rate 78, respirations 24, O2 saturations 96% on a Ventimask. General: This is a morbidly obese confused female lying in bed in no acute distress. Head: Normocephalic, atraumatic. Heart: S1, S2. Normal. Regular rate and rhythm. Lungs: Coarse breath sounds with crackles bilaterally. Abdomen: Positive bowel sounds. Soft, nontender, nondistended. Extremities: No edema. No cyanosis. Neurologic: The patient is lethargic and confused, she is able to move all 4 extremities. LABS: White blood cell count 10, hemoglobin 9.6, hematocrit 30, platelets 412,000. Sodium 145, potassium 4.3, chloride 102, CO2 28, BUN 49, creatinine 1.3, glucose 266. Chest x-ray shows increased interstitial markings in both lungs. ASSESSMENT AND PLAN: 1. Acute hypoxemic respiratory failure. Secondary to the volume overload and possible pneumonia. Continue on IV antibiotics, bronchodilator therapy, Lasix and supplemental oxygen. Pulmonary is following. 2. Metabolic encephalopathy. Unchanged. Will continue to treat the underlying conditions. Will monitor closely for improvement. 3. Acute kidney injury on chronic kidney disease. Improved. 4. Uncontrolled insulin-dependent diabetes mellitus type 2. Will continue to cover the patient with sliding scale insulin and monitor Accu-Cheks every 4 hours. 5. Volume overload. The patient is currently on IV Lasix. 6. Dementia. Aware. 7. Hypothyroidism. Continue on Synthroid. 8. Hypertension. The patient is currently on a Cardene drip. 9. Deep vein thrombosis prophylaxis. Continue with SCDs. 10. Iron-deficiency anemia. The patient's hemoglobin and hematocrit are improved after receiving 1 unit of packed red blood cells yesterday. GI is following. 11. Gastrointestinal prophylaxis. Continue on Protonix. 12. Deep vein thrombosis prophylaxis. Continue with SCDs. cc: Merlyn Veras MD
[2016-10-03] MEDS: HALDOL IM PRN (14:51)
[2016-10-03] MEDS ORDERED: DILAUDID IV ONE (15:19)
[2016-10-03] MEDS: LEVAQUIN 500 MG in NS 100 ML IV SCH (16:15)
[2016-10-04] MEDS: HUMULIN R SUBQ SCH ×4 (00:57→12:41)
[2016-10-04] MEDS: ATIVAN IV PRN ×2 (02:47→06:37)
[2016-10-04] MEDS: DUONEB (A & A) INH SCH ×3 (03:16→11:07)
[2016-10-04] MEDS ORDERED: MORPHINE IV PRN ×2 (04:10→12:50)
[2016-10-04] MEDS: SODIUM CHLORIDE 0.9% INJ SCH (04:40)
[2016-10-04] MEDS: PROTONIX IV SCH (04:40)
[2016-10-04 04:58] LABS: MANUAL DIFF NEEDED? NO
[2016-10-04 05:01] LABS: BASO% 0.4 % (0.0-0.8); EOS# 0.06 X1000 (0.0-0.7); EOS% 0.7 % (0.0-10.0); HEMATOCRIT 31.4 % (37.0-47.0); HEMOGLOBIN 9.8 g/dL (12.0-16.0); LYMPH# 0.98 X1000 (1.2-3.4); MCH 27.9 PG (27-31); MCHC 31.2 g/dL (33-37); MCV 89.5 FL (81-99); MONO# 0.85 X1000 (0.11-0.59); MONO% 10.4 % (1.7-9.3); MPV 10.2 FL (7.4-10.4); NEUT% 76.5 % (42.2-75.2); PLT 403 X1000 (130-400); RBC 3.51 XMIL (4.2-5.4)
[2016-10-04 05:49] LABS: ALBUMIN 3.4 g/dL (3.5-5.0); CALCIUM 9.1 mg/dL (8.8-10.2); POTASSIUM 3.8 mmol/L (3.5-5.1)
[2016-10-04] MEDS: SYNTHROID IV SCH (06:05)
[2016-10-04] MEDS: MUCOMYST 20% INH SCH (07:22)
--- NOTE | 2016-10-04 07:54 | Diag Imaging Result Document ---
PROCEDURE NAME: CHEST-PORTABLE - 10/04/2016 AP PORTABLE CHEST, 10/04/2016 AT 0500 HOURS: FINDINGS: There is improvement in the pulmonary edema present on 10/03/2016. Otherwise there has been no significant change. IMPRESSION: Improved pulmonary edema.
[2016-10-04] MEDS: MERREM 500 MG in NS 50 ML IV SCH (08:04)
--- NOTE | 2016-10-04 08:38 | PROGRESS NOTE ---
DATE: 10/04/2016 Ms. Kamara is sluggish this morning. I can get her awake and she is moving all limbs, spontaneously turning her head left and right but not following commands. She has equal tone in the limbs. She did not speak. Extraocular movements are full with passive head turning. Blood sugars were low at times the 1st few days of this admission and have been improved in the last few days. IMPRESSION: Global encephalopathy, uncertain etiology. In the past, she has had very similar appearance associated with elevated blood sugars. This time, she was admitted after a reported very low blood sugar recorded. However, I have learned today that she was awake and alert at some point after that initial low blood sugar. I do not see evidence of central nervous system infection or increased intracranial pressure. I do not have any urgent suggestion today. She has recovered in the past and I hope she will recover again. Thanks for allowing me to follow Ms. Kamara. cc: Syeda Bourne III, MD
[2016-10-04] MEDS ORDERED: APRESOLINE IV PRN (09:17)
--- NOTE | 2016-10-04 09:24 | PROGRESS NOTE ---
DATE: 10/04/2016 SUBJECTIVE: Patient is still restless. As per nursing staff, she is still sometimes agitated. She is still requiring oxygen by Ventimask. OBJECTIVE: Vital Signs: Temperature 97.8 degrees, heart rate 89, respiratory rate 15, blood pressure 174/74, O2 saturation 99% on Venturi mask at 50% oxygen. General Examination: This is a morbidly obese, confused, and chronically ill-looking female lying in bed in no acute distress. HEENT: Head is normocephalic, atraumatic. Anicteric sclerae and pale conjunctivae. Mucous membranes moist. Pupils equal, round, reactive to light and accommodation. Neck: Supple. No jugular venous distention noted. No carotid bruits. No lymphadenopathy. No thyromegaly. Cardiovascular Examination: S1 and S2 heard. No murmurs, gallops, or rubs. Regular rate and rhythm. Respiratory Examination: Coarse breath sounds still present in both bases with crackles as well. Patient is not using any accessory muscles or having work of breathing. Abdomen: Soft, apparently nontender to palpation. Nondistended. Bowel sounds present. No organomegaly. Extremities: No clubbing, cyanosis, or edema. Peripheral pulses present in both legs. Neurological Examination: Patient is lethargic and confused. She moves spontaneously 4 extremities. LABORATORY DATA: White cell count 8.14, hemoglobin 9.8, hematocrit 31.4. Platelets 403,000. The BMP remarkable for creatinine 1.2 and sodium 151. Glucose 187. ASSESSMENT AND PLAN: 1. Acute hypoxemic respiratory failure. That could be secondary to volume overload and possibly pneumonia. X-ray from today shows a good improvement in pulmonary edema. Patient was receiving yesterday Lasix 80 mg IV q.12 hours. That medication has been discontinued by Pulmonary. Patient is on bronchodilator therapy as well. At this point, we are going to continue with the same management. Pulmonary is following this patient. 2. Metabolic encephalopathy. Patient remains still encephalopathic and we do not know exactly why she is having this problem. Dr. Bourne from Neurology is following this patient. We will follow his recommendations, but now we are going to keep this patient in intensive care unit. 3. Acute on chronic kidney disease. The creatinine is getting definitely much better, with renal function 1.2. At this point, we are going to continue checking BMP daily. 4. Uncontrolled diabetes mellitus type 2. Patient is on sliding scale insulin q.4 p.r.n. Checking Accu-Cheks every 4 hours as well. We know that this patient has prolonged with low sugars but now we are using just if glucose is above 200. 5. Hypothyroidism. We will continue with Synthroid. 6. Hypertension. Although the patient's Cardizem drip has been discontinued, the patient is still having high blood pressure. Patient, because of her current baseline, she is unable to take any blood pressure pills. Will start this patient on hydralazine and labetalol p.r.n. 7. Deep vein thrombosis prophylaxis. We will continue SCDs. 8. Iron-deficiency anemia. Patient has received 1 unit of PRBC two days ago and the hemoglobin is stable so far. We do not know yet the source of the anemia. In any case , we will continue checking CBC daily. 9. GI prophylaxis with Protonix. Addendum: Family met with palliative care team and decided to withdraw of care. Will keep patient comfortable and transfer her out of ICU today. Code status is DNR level 1 cc: Brooks Telles MD MTDD
[2016-10-04] MEDS ORDERED: ATIVAN IV PRN (12:49)
[2016-10-04 16:50] VITALS: BP 198/71
--- NOTE | 2016-10-04 20:13 | PALLIATIVE CARE CONSULTATION ---
DATE: 10/04/2016 REQUESTING PHYSICIAN: Merlyn Veras MD. REASON FOR CONSULTATION: Goals of care. HISTORY OF PRESENT ILLNESS: This is a 61-year-old, , chronically ill- appearing female with a past medical history of poorly controlled diabetes mellitus, hypertension , dementia, depression, CVA, carotid artery stenosis, COPD and recurrent encephalopathy. She was most recently admitted on 09/29/2016 after being found to be very confused and combative at [facility]. On arrival to the ER, a CT of the head was done but found to be unremarkable. It was noted that she did have a blood sugar of 25 and received D50. She was admitted to the ICU for further evaluation. Currently Ms. Kamara remains confused. She is requiring 4 point restraints. She is very agitated. She does attempt to speak but her speech is garbled. She does not make eye contact. She does not have a social smile. Neurology is on board. The Palliative Care team has been consulted to assist with goals of care. REVIEW OF SYSTEMS: Unable to review. PAST MEDICAL HISTORY: 1. COPD. 2. Recurrent encephalopathy. 3. Poorly controlled diabetes mellitus. 4. Hypertension. 5. Gastroesophageal reflux disease. 6. Dementia. 7. Depression. 8. CVA. 9. Dyslipidemia. 10. Carotid artery stenosis. PAST SURGICAL HISTORY: 1. Hysterectomy. 2. Bilateral hip replacement. 3. Breast augmentation. SOCIAL HISTORY: Prior to this admission she was a resident at [facility]. She continued to smoke up until 1 week ago per her sister. Alcohol and drug use have been denied. She is not . She does not have any children. PHYSICAL EXAMINATION: General: This is a 61-year-old, chronically ill- appearing, female, who is agitated. HEENT: Atraumatic, normocephalic. Neck: Supple. Cardiovascular: Normal S1, S2. Pulmonary: Lung sounds are diminished with coarse breath sounds auscultated throughout. Respirations are nonlabored. Abdomen: Soft. Bowel sounds are active. Extremities: She has upper extremity edema. Pulses are palpable. Neurologic: She is confused. IMPRESSION: This is a 61-year-old, female with a past medical history as listed above in the HPI. I met with Ms. Kamara's sister and niece who is her power of bank vault custodian to discuss her goals of care. The family states that over the last 4 months they have noticed a significant decline in Ms. Kamara, most specifically over the last 2-3 weeks. They state since a hospitalization in June of this year she has been wheelchair bound, however, she was able to maneuver herself in her wheelchair. She was able to have normal conversation. They did notice that she was having increased choking episodes with food and fluid intake. The sister states over the last week Ms. Kamara has been more confused and lethargic. She has not been able to get in her wheelchair and move about the retirement. Her appetite has decreased significantly with an increase in episodes of choking. She is incontinent. The family states that during the admission from June she was followed by [facility]. She showed an improvement and was never admitted to the hospice program. I feel that she is now appropriate for hospice services. The family has agreed and wants her goal of care to be geared towards comfort. They do not want any further testing or lab draws. They want all of her medications to be given for comfort. She has good medications in place. She has Haldol 2 mg ordered for every 2 hours as needed. I would recommend giving this every 2 hours until calm and then transition back to as needed. A hospice consultation will be placed. Ms. Kamara does have an advanced directive that states that she would want to be a DNR level 1. That order is already in place. It appears that her palliative performance scale is 20%. The Palliative Care team will continue to follow. Thank you for this consultation. Dictated by SELENE Beard for Hilario Mitchell MD cc: SELENE Beard MD [facility]
--- NOTE | 2016-10-06 01:44 | DISCHARGE SUMMARY ---
ADMISSION DATE: 09/29/2016 DISCHARGE DATE: 10/04/2016 DISPOSITION: Patient discharged on inpatient hospice. DISCHARGE DIAGNOSES: 1. Acute hypoxemic respiratory failure secondary to volume overload and pneumonia. Patient going to inpatient hospice. 2. Metabolic encephalopathy, with no improvement. Patient going on inpatient hospice. 3. [id number] kidney disease. 4. Uncontrolled diabetes mellitus type 2. 5. Hypothyroidism. 6. Hypertension. 7. Iron deficiency anemia. 8. Volume overload. 9. Dementia. 10. Hypothyroidism. PERTINENT PROCEDURES: 1. Head CT showed no hemorrhage, multiple old infarcts. 2. Renal ultrasound was unremarkable. 3. Chest, abdomen, and pelvis CT showed cardiomegaly, pulmonary vascular congestion, trace interstitial pulmonary edema, trace right pleural effusion, numerous bilateral rib fractures, cholelithiasis, trace ascites, flank edema. HOSPITAL COURSE: Briefly, Ms. Kamara is a 61-year-old female, has a past medical history of poorly-controlled diabetes, hypertension, dementia, depression, CVA, carotid artery stenosis, COPD, recurrent encephalopathy, most recently admitted on 09/29 after being found very confused and combative at [facility]. On arrival to the ED, a CT of the head was done, and it was found to be unremarkable. She was noted to have low blood sugars, and received D50. She was in the ICU. Ms. Kamara remained confused, requiring 4-point restraints, very agitated. The palliative care team was brought in. They were able to speak with Ms. Kamara's sister and a niece who have power of deputy attorney general to discuss her goals of care. The family reported that for the last 4 months, they had noticed a significant decline, and more so over the last 2-3 weeks. She has been wheelchair-bound since June, but she could get around in her wheelchair. She was having normal conversations, but they did note she was having increased choking episodes with food and fluid intake. She was becoming more confused and lethargic, and had not been able to get in her wheelchair to move about her residence in the [place]. She had a decrease in appetite. She was incontinent. She was recently followed in June by [facility]. She showed improvement, and was never admitted to the hospice program. Palliative care did feel that the patient was now appropriate for hospice services. The family has agreed, and wants her goals of care to be geared towards comfort. They do not want any further testing or lab draw. They want her medications to be given for comfort only. She is a DNR level 1, and she was placed on inpatient hospice. Dictated by SELENE Lofton for Brooks Telles MD cc: Brooks Telles MD
== END 2016-10-04 17:28 | disposition hospice, inpatient (51) ==
LOC: ED 12:24 → SUATTDRO 17:22 → EDIPHOLD 17:22 → ICU 23:42 → 4N 10-04 16:01
PROVIDERS: ATTEND Internal Medicine

== ENCOUNTER 2016-10-04 17:30 | Inpatient (IN) ==
[2016-10-04] MEDS ORDERED: HALDOL LIQUID PO PRN (19:54)
[2016-10-04] MEDS: MORPHINE IV PRN (19:58)
[2016-10-04] MEDS: ATIVAN IV PRN (19:58)
[2016-10-05] MEDS: ATIVAN IV PRN ×5 (00:38→18:12)
[2016-10-05] MEDS: MORPHINE IV PRN ×5 (00:38→18:11)
[2016-10-05] MEDS ORDERED: TYLENOL PR PRN (10:54)
--- NOTE | 2016-10-05 15:27 | PROGRESS NOTE ---
DATE: 10/05/2016 SUBJECTIVE: Patient is lying comfortably on bed. A little bit tachypneic. OBJECTIVE: Vital signs: Temperature 99.3 degrees, heart rate 87, respiratory rate 20, blood pressure 161/66, O2 saturation 94% 5 L nasal cannula. General: This a 61-year-old female lying in bed in mild respiratory distress. Respiratory exam: Coarse breath sounds in both bases. Patient is in mild respiratory distress using accessory muscles. Cardiovascular exam: S1, S2 heard. Tachycardic. ASSESSMENT AND PLAN: 1. Acute hypoxemic respiratory failure. 2. Metabolic encephalopathy. 3. Acute on chronic kidney disease. 4. Uncontrolled diabetes mellitus type 2. 5. Hypothyroidism. 6. Hypertension. PLAN: 1. Patient is on in-patient hospice. We are providing Ativan and morphine for control symptoms. At this point we are going to continue following this patient closely make sure that she is comfortable. 2. Poor prognosis and family updated about this. CODE STATUS: DNR. cc: Brooks Telles MD
[2016-10-05] MEDS: ATROPINE 1 % OPHTH SOLN MISC PRN (16:04)
[2016-10-06] MEDS: MORPHINE IV PRN ×7 (00:31→20:25)
[2016-10-06] MEDS: ATIVAN IV PRN ×3 (00:32→20:26)
--- NOTE | 2016-10-06 14:24 | PROGRESS NOTE ---
DATE: 10/06/2016 SUBJECTIVE: The patient looks to be in pain and also tachypneic. OBJECTIVE: Vital Signs: Temperature 98.1 degrees, heart rate 95, respiratory rate 16, blood pressure 145/85. O2 saturation 96% on 5 L nasal cannula. General Appearance: The is a 61-year- old female lying in bed in mild respiratory distress. Respiratory: Some coarse breath sounds all over both pulmonary miranda. Patient is in mild respiratory distress, using accessory muscles. Cardiovascular examination: S1, S2 heard. Tachycardic. No rubs. ASSESSMENT AND PLAN: 1. Acute hypoxemic respiratory failure. 2. Metabolic encephalopathy. 3. Acute on chronic kidney disease. 4. Uncontrolled diabetes mellitus type 2. 5. Hypothyroidism. 6. Hypertension. PLAN: The patient is on in-patient hospice. By now she is receiving between 2 and 4 mg of morphine every 1-2 hours, but it seems like it is not controlling the pain or the sensation of shortness of breath so we are going to increase it to 6 mg. We will see how this patient does. CODE STATUS: Do not resuscitate. cc: Brooks Telles MD
[2016-10-06] MEDS: ATROPINE 1 % OPHTH SOLN MISC PRN (16:09)
[2016-10-07] MEDS: MORPHINE IV PRN ×5 (00:01→15:32)
[2016-10-07] MEDS: ATROPINE 1 % OPHTH SOLN MISC PRN ×3 (04:57→13:29)
[2016-10-07] MEDS: ATIVAN IV PRN ×3 (05:06→15:32)
[2016-10-07] MEDS: ATIVAN IV SCH ×4 (16:52→22:10)
[2016-10-07] MEDS: MORPHINE IV SCH ×4 (16:52→22:10)
[2016-10-08] MEDS: ATIVAN IV SCH ×12 (01:12→22:18)
[2016-10-08] MEDS: MORPHINE IV SCH ×12 (01:12→22:19)
--- NOTE | 2016-10-08 07:50 | PROGRESS NOTE ---
DATE: 10/07/2016 SUBJECTIVE: The patient looks more comfortable today. Breathing a little bit faster. OBJECTIVE: Vital Signs: The patient's temperature is 98.6 degrees, heart rate is 71, respiratory rate 12, blood pressure 146/51, O2 saturation 96% on 5 L nasal cannula. General Examination: This is a 61-year-old female lying in bed in mild respiratory distress. Respiratory Examination: Coarse breath sounds in both bases. A little bit worse in comparing with yesterday. Cardiovascular Examination: S1-S2 heard. Tachycardic. No murmurs, gallops, or rubs. ASSESSMENT/PLAN: 1. Acute hypoxemic respiratory failure. 2. Metabolic encephalopathy. 3. Acute on chronic kidney disease. 4. Uncontrolled diabetes mellitus, type 2. 5. Hypothyroidism. 6. Hypertension. PLAN: The patient is on inpatient hospice. The patient is receiving morphine and Ativan and also atropine drops. Will continue with the same management. We will keep this patient comfortable. [facility]
--- NOTE | 2016-10-08 14:56 | PROGRESS NOTE ---
DATE: 10/08/2016 SUBJECTIVE: The patient is comfortable at bed. Unable to talk. OBJECTIVE: Vital Signs: Temperature 98.4 degrees, heart rate 81, blood pressure 138/48, O2 saturation 91% on 5 L nasal cannula. General Examination: This is a chronically ill-looking, male, lying in bed, in mild respiratory distress. Respiratory Examination: Coarse breath sounds all over both pulmonary miranda. Cardiovascular: S1, S2 heard. Tachycardic. No murmurs, gallops, or rubs. ASSESSMENT AND PLAN: 1. Acute hypoxemic respiratory failure. 2. Metabolic encephalopathy. 3. Acute on chronic kidney disease. 4. Controlled diabetes mellitus type 2. 5. Hypothyroidism. 6. Hypertension. PLAN: Patient continues to be an inpatient hospice. We are trying to control her symptoms. In this case is morphine, Ativan and atropine. We will continue with the same management. cc: Brooks Telles MD
[2016-10-09] MEDS: MORPHINE IV SCH ×12 (00:09→23:56)
[2016-10-09] MEDS: ATIVAN IV SCH ×13 (00:09→23:56)
--- NOTE | 2016-10-09 12:14 | PROGRESS NOTE ---
DATE: 10/09/2016 SUBJECTIVE: Patient is comfortable in bed. Of course, nonresponsive to verbal stimuli only to painful. OBJECTIVE: Vital Signs: Temperature 99.0 degrees, heart rate 91, respiratory rate 13, blood pressure 116/38, O2 saturation 88% on 5 L nasal cannula. General Examination: This is a chronically ill-looking, female, lying in bed, in mild respiratory distress. Respiratory Examination: Coarse breath sounds all over both pulmonary miranda. Cardiovascular: S1, S2 heard. Irregularly irregular and tachycardic. No murmurs, gallops, or rubs. ASSESSMENT AND PLAN: 1. Acute hypoxemic respiratory failure. 2. Metabolic encephalopathy. 3. Acute on chronic kidney disease. 4. Uncontrolled diabetes mellitus type 2. 5. Hypothyroidism. 6. Hypertension. 7. Atrial fibrillation. PLAN: Patient continues to be in-patient hospice. As per nursing staff telemetry has report of paroxysmal atrial fibrillation. We are aware of that. We will continue with morphine, Ativan and atropine. We will continue keeping this patient in the hospital. cc: Brooks Telles MD
[2016-10-09 21:09] VITALS: BP 91/33
--- NOTE | 2016-10-10 11:24 | DISCHARGE SUMMARY ---
ADMISSION DATE: 10/05/2016 DISCHARGE DATE: 10/10/2016 DISCHARGE DIAGNOSES: The patient is because of the following problems: 1. Acute hypoxemic respiratory failure. 2. Metabolic encephalopathy. 3. Acute on chronic kidney disease. 4. Uncontrolled diabetes mellitus type 2. 5. Hypothyroidism. 6. Hypertension. 7. Atrial fibrillation with rapid ventricular response. HOSPITAL COURSE: Patient was admitted to inpatient hospice because of conditions mentioned above. Patient had been placed to morphine and Ativan. The patient was doing fine during all of . Unfortunately, today at 12:20, we have realized that this patient had . Family informed. cc: Brooks Telles MD
== END 2016-10-10 00:20 | disposition expired ==
LOC: 4N 17:30 → 3N 10-06 22:24
PROVIDERS: ATTEND Internal Medicine